=== PATIENT | male | born 1995 | race Two or more races ===

== ENCOUNTER 2018-04-26 08:28 | Outpatient (CLI) | payer OTHER ==
[~2018-04-26] VITALS: Ht 177.8 cm; Wt 73.9 kg
[2018-04-26] MEDS ORDERED: ZANTAC300 MG PO (08:57)
[2018-04-26] MEDS ORDERED: CLARITIN10 MG PO (08:58)
== END 2018-04-26 08:40 | disposition home or self-care (01) ==
LOC: OFIC 805 08:28
DX: J31.0 Chronic rhinitis (principal); R05 Cough; J37.0 Chronic laryngitis; J34.2 Deviated nasal septum

== ENCOUNTER → 2018-05-03 | Outpatient (CLI) | payer OTHER ==
[~2018-05-03] MED LIST: CLARITIN10 MG PO; ZANTAC300 MG PO
== END | disposition home or self-care (01) ==
LOC: RAD 18:16
DX: M54.5 Low back pain (principal); M25.572 Pain in left ankle and joints of left foot

== ENCOUNTER 2018-05-04 09:36 | Outpatient (CLI) | payer OTHER | END 2018-05-04 09:37 | disposition home or self-care (01) | LOC: LAB 09:36 | DX: D50.0 Iron deficiency anemia secondary to blood loss (chronic) (principal); E11.65 Type 2 diabetes mellitus with hyperglycemia; Z12.11 Encounter for screening for malignant neoplasm of colon; K62.5 Hemorrhage of anus and rectum; E78.00 Pure hypercholesterolemia, unspecified; N40.0 Benign prostatic hyperplasia without lower urinary tract symptoms; E03.0 Congenital hypothyroidism with diffuse goiter; N39.0 Urinary tract infection, site not specified; E55.9 Vitamin D deficiency, unspecified; M81.0 Age-related osteoporosis without current pathological fracture ==

== ENCOUNTER 2018-05-04 10:46 | Outpatient (CLI) | payer OTHER | END 2018-05-04 10:59 | disposition home or self-care (01) | LOC: TOM 10:46 | DX: G45.8 Other transient cerebral ischemic attacks and related syndromes (principal) ==